=== PATIENT | male | born 1990 | race American Indian/Alaskan Native ===

== ENCOUNTER 2018-06-04 22:45 | Emergency (ER) | payer OTHER ==
[2018-06-04 23:11] VITALS: BP 123/85
--- NOTE | 2018-06-05 00:21 | C.PDOC ---
History Of Present Illness 27 year old male patient presents to the ER with c/o painful lump in gluteal folds. Patient states he has had the lump for x2 days. Patient denies drainage, active bleeding, fever, or chills. Time Seen by Provider: 06/04/18 23:21 Chief Complaint (Nursing): Abnormal Skin Integrity History Per: Patient History/Exam Limitations: no limitations Onset/Duration Of Symptoms: Days (x2) Past Medical History Reviewed: Historical Data, Nursing Documentation, Vital Signs Vital Signs: Last Vital Signs Temp 98 F 06/05/18 00:33 Pulse 82 06/05/18 00:33 Resp 20 06/05/18 00:33 BP 123/85 06/04/18 23:09 Pulse Ox 99 06/05/18 02:07 Family History: States: No Known Family Hx - Social History Hx Alcohol Use: No Hx Substance Use: No - Immunization History Hx Tetanus Toxoid Vaccination: No Hx Influenza Vaccination: No Hx Pneumococcal Vaccination: No Review Of Systems Except As Marked, All Systems Reviewed And Found Negative. Constitutional: Negative for: Fever, Chills Genitourinary: Positive for: Other (lump in rectal fold; no drainage or active bleeding in rectal fold) Physical Exam - Physical Exam Appears: Well, Non-toxic, No Acute Distress Skin: Warm, Dry Head: Atraumatic, Normacephalic Eye(s): bilateral: Normal Inspection Gastrointestinal/Abdominal: Soft, No Tenderness Rectal: Hemorrhoids (+external hemorrhoids), No Mass, No Other (rectal bleed, abscess, or fluctuant mass) Back: No CVA Tenderness Extremity: Normal ROM (x4) Neurological/Psych: Oriented x3, Normal Speech, Normal Motor, Normal Sensation, Normal Reflexes Gait: Steady ED Course And Treatment O2 Sat by Pulse Oximetry: 99 (RA) Pulse Ox Interpretation: Normal Progress Note: Impression: Ext hemorrhoid. Reassess: Patient is resting comfortably. Patient is prescribed medication and patient is instructed symptomatic care at home. Patient is advised to f/u with PMD in 1-2 days. Disposition Counseled Patient/Family Regarding: Diagnosis, Need For Followup, Rx Given - Disposition Referrals: Julieth Garcia MD [Staff Provider] - Disposition: HOME/ ROUTINE Disposition Time: 00:17 Condition: STABLE Additional Instructions: Take medications as directed Do Sitz baths High fiber diet Follow up with PMD Retun to ER if worse Prescriptions: Docusate Sodium [Colace] 100 mg PO BID #20 capsule Hydrocortisone [Anusol-HC] 25 mg RC BID #14 sup Instructions: Hemorrhoids (DC) Forms: [facility] (Congolese) - Clinical Impression Clinical Impression: Hemorrhoids, external - PA / MARBLE POLISHER / Resident Statement MD/ has reviewed & agrees with the documentation as recorded. - Scribe Statement The provider has reviewed the documentation as recorded by the Yessi Bone Do All medical record entries made by the Scribe were at my direction and personally dictated by me. I have reviewed the chart and agree that the record accurately reflects my personal performance of the history, physical exam, medical decision making, and the department course for this patient. I have also personally directed, reviewed, and agree with the discharge instructions and disposition.
[2018-06-05 00:34] VITALS: PULSE 82; RESP 20; TEMP 98
[2018-06-05 02:04] VITALS: O2SAT 99
== END 2018-06-05 00:33 | disposition home or self-care (01) ==
LOC: C.ER 22:45
DX: K64.4 Residual hemorrhoidal skin tags (principal)

== ENCOUNTER 2018-06-07 21:28 | Emergency (ER) | payer OTHER ==
[2018-06-07 21:36] VITALS: BP 116/71; PULSE 87; RESP 20; TEMP 98.5; O2SAT 96
--- NOTE | 2018-06-07 22:34 | C.PDOC ---
History Of Present Illness 27 year old male patient presents to the ER with complaints of painful hemorrhoids and bleeding from area tonight. He reports having the hemorrhoids for several days, was seen in ED and given medications. Tonight when applying the ointment he felt pain and then noticed bright red blood from rectum. He still has pain and bleeding. Denies fever, chills, nausea, abdominal pain or weakness. Time Seen by Provider: 06/07/18 21:43 Chief Complaint (Nursing): Abnormal Skin Integrity History Per: Patient History/Exam Limitations: no limitations Current Symptoms Are (Timing): Still Present Additional History Per: Patient Past Medical History Reviewed: Historical Data, Nursing Documentation, Vital Signs Vital Signs: Last Vital Signs Temp 98.5 F 06/07/18 21:33 Pulse 87 06/07/18 21:33 Resp 20 06/07/18 21:33 BP 116/71 06/07/18 21:33 Pulse Ox 96 06/08/18 00:04 - Medical History PMH: No Chronic Diseases Surgical History: No Surg Hx Family History: States: No Known Family Hx - Social History Hx Alcohol Use: No Hx Substance Use: No - Immunization History Hx Tetanus Toxoid Vaccination: No Hx Influenza Vaccination: No Hx Pneumococcal Vaccination: No Review Of Systems Except As Marked, All Systems Reviewed And Found Negative. Constitutional: Negative for: Fever, Chills Gastrointestinal: Positive for: Rectal Pain (hemorrhoids), Other (rectal bleeding). Negative for: Nausea, Abdominal Pain Neurological: Negative for: Weakness Physical Exam - Physical Exam Appears: Non-toxic Skin: Warm, Dry Head: Atraumatic, Normacephalic Eye(s): bilateral: Normal Inspection, EOMI Neck: Normal ROM, Supple Chest: Symmetrical Cardiovascular: Rhythm Regular Respiratory: Normal Breath Sounds Gastrointestinal/Abdominal: Normal Exam, Soft, No Tenderness Rectal: Hemorrhoids (external hemorrhoids with thrombus and mild active bleeding ), No Mass, No Other (abscess/fluctuant mass) Neurological/Psych: Oriented x3 ED Course And Treatment O2 Sat by Pulse Oximetry: 96 (RA) Pulse Ox Interpretation: Normal Medical Decision Making Medical Decision Making: Impression: painful hemorrhoid, bleeding Plan: Consult surgery Progress: [facility] surgery telephone operator, Dr Cain who states Dr Garcia is covering [facility] surgical nurse practitioner who will come to ED [id number] residential aide at bedside residential aide performed procedure to drain the area, consent obtained; see consult note [id number] Patient feeling better and is stable for discharge. Patient instructed to do sitz baths, take analgesics and follow up outpatient. Disposition Counseled Patient/Family Regarding: Diagnosis, Need For Followup, Rx Given - Disposition Referrals: Jonathan Greene MD [Medical Doctor] - Julieth Garcia MD [Staff Provider] - Disposition: HOME/ ROUTINE Disposition Time: 23:37 Condition: GOOD Additional Instructions: Do Sitz baths Take pain medication as needed Follow up with Dr Garcia Instructions: Hemorrhoids (DC), How to Do a Sitz Bath Forms: [employer] (Greenlandic) - POA Present On Arrival: None - Clinical Impression Clinical Impression: External hemorrhoid, bleeding - PA / DELI BAKERY CLERK / Resident Statement / has reviewed & agrees with the documentation as recorded. - Scribe Statement The provider has reviewed the documentation as recorded by the Yessi Cueva Provider Attestation: All medical record entries made by the Javieribnicolle were at my direction and personally dictated by me. I have reviewed the chart and agree that the record accurately reflects my personal performance of the history, physical exam, medical decision making, and the department course for this patient. I have also personally directed, reviewed, and agree with the discharge instructions and disposition.
[2018-06-07] MEDS ORDERED: Lidocaine 2% Jelly (Uro-Jet) TOP ONE (22:52)
--- NOTE | 2018-06-08 02:01 | CP.PCM.CON ---
History of Present Illness - History of Present Illness History of Present Illness: Late Entry--Patient seen and evaluated approximately 11PM General Surgery consult note for Dr. Garcia Constulted for: thrombosed hemorrhoid Pt is a 27M who denies any other PMH who presented with pain and bleeding from his rectum. Patient states that 5 days ago he noted a swelling and pain in his rectum and was diagnosed with a non-thrombosed hemorrhoid in the ER at [facility]. He was discharged to home with instructions to follow up with Dr. Garcia in her office for further evaluation. Patient states he treated the hemorrhoid with preparation h and warm soaks. Patient states that his pain has been improved but then today the pain got worse and he noted blood coming from the hemorrhoid that he couldn't stop with pressure. Patient denies fevers, chills, abdominal pain, or any other symptoms, is having regular bowel movements PMH: none PSH: none ALL: NKDA Review of Systems - Review of Systems All systems: reviewed and no additional remarkable complaints except (as per HPI ) Past Patient History - Past Medical History & Family History Past Medical History?: Yes - Past Social History Smoking Status: Current Some Days Smoker - PSYCHIATRIC Hx Substance Use: No - SURGICAL HISTORY Hx Surgeries: No Meds Allergies/Adverse Reactions: Allergies Allergy/AdvReac Type Severity Reaction Status Date / Time No Known Allergies Allergy Verified 06/07/18 21:32 Physical Exam - Constitutional Appears: Well, Non-toxic, No Acute Distress - Head Exam Head Exam: NORMOCEPHALIC - Eye Exam Eye Exam: Normal appearance. absent: Conjunctival injection, Scleral icterus - ENT Exam ENT Exam: Mucous Membranes Moist, Normal Oropharynx - Respiratory Exam Respiratory Exam: NORMAL BREATHING PATTERN. absent: Accessory Muscle Use, Respiratory Distress - Cardiovascular Exam Cardiovascular Exam: REGULAR RHYTHM, RRR - GI/Abdominal Exam GI & Abdominal Exam: Soft. absent: Distended, Tenderness - Rectal Exam Additional comments: purple, protruding, tense hemorrhoid with bright red blood and part of a clot protruding, normal rectal tone - Extremities Exam Extremities exam: Positive for: pedal pulses present. Negative for: calf tenderness, pedal edema - Neurological Exam Neurological exam: Alert, Oriented x3 - Psychiatric Exam Psychiatric exam: Normal Affect, Normal Mood - Skin Skin Exam: Dry, Intact, Normal Color, Warm Results - Vital Signs Recent Vital Signs: Last Vital Signs Temp 98.5 F 08/21/18 21:33 Pulse 87 06/07/18 21:33 Resp 20 06/07/18 21:33 BP 116/71 06/07/18 21:33 Pulse Ox 96 06/08/18 00:10 Assessment & Plan - Assessment and Plan (Free Text) Assessment: 27M with history of external hemorrhoid, thrombosed tonight Plan: bedside incision of thrombosis and evacuation of thrombosis Discharge to home Sitz baths after every bowel movement PRN alternating tylenol and ibuprofen Follow up with Dr. Garcia in her office for further evaluation Return to the ER for any fevers, chills, purulent discharge, or any other concerning symptoms. Discussed with DR. Jose Benitez, PGY2 Addendum Addendum: 06/08/18 02:07 Procedure note: Pre-op Diagnosis: acute thrombosed external hemorrhoid Procedure: incision of hemorrhoid and evacuation of the thrombosis Operative findings: clot evacuated from hemorrhoid Specimens: none Written consent was obtained with nurse as witness. time out was performed to identify patient, location, and procedure. Lidocaine cream was applied to the hemorrhoid. Rectal area was sanitized with betadine. hemorrhoid was incised with an #11 blade and clot was expressed. Adequate hemostasis was obtained via pressure with gauze dressings. Patient tolerated the procedure well with no adverse side effects.
== END 2018-06-07 23:44 | disposition home or self-care (01) ==
LOC: C.ER 21:28
DX: K64.5 Perianal venous thrombosis (principal)

== ENCOUNTER 2018-08-01 21:34 | Emergency (ER) | payer OTHER ==
[2018-08-01 22:09] VITALS: BP 112/68; PULSE 82; RESP 16; TEMP 98.9; O2SAT 98
--- NOTE | 2018-08-01 23:04 | C.PDOC ---
History Of Present Illness 27 year old male presents to the ED c/o right eye pain. Patient reports he noticed a small lump to his right lower eyelid. Patient denies fever, chills, visual changes, eye discharge, decreased vision, dizziness. Time Seen by Provider: 08/01/18 22:29 Chief Complaint (Nursing): Eye Problem History Per: Patient History/Exam Limitations: no limitations Onset/Duration Of Symptoms: Days Current Symptoms Are (Timing): Still Present Injury To Eye?: No Quality: "Pain" Wears Contact Lens?: No Associated Symptoms: Swelling Recent travel outside of the [place]: No Additional History Per: Patient Past Medical History Reviewed: Historical Data, Nursing Documentation, Vital Signs Vital Signs: Last Vital Signs Temp 98.9 F 08/01/18 22:04 Pulse 82 08/01/18 22:04 Resp 16 08/01/18 22:04 BP 112/68 08/01/18 22:04 Pulse Ox 98 08/01/18 22:04 - Medical History PMH: Asthma Surgical History: No Surg Hx Family History: States: Unknown Family Hx - Social History Hx Alcohol Use: No Hx Substance Use: No - Immunization History Hx Tetanus Toxoid Vaccination: No Hx Influenza Vaccination: No Hx Pneumococcal Vaccination: No Review Of Systems Constitutional: Negative for: Fever, Chills Eyes: Positive for: Eyelid Inflammation. Negative for: Pain, Vision Change, Redness Respiratory: Negative for: Cough Skin: Negative for: Rash Neurological: Negative for: Weakness, Numbness Physical Exam - Physical Exam Appears: Non-toxic, No Acute Distress Skin: Normal Color, Warm, Dry Head: Atraumatic, Normacephalic Eye(s): bilateral: PERRL, EOMI, right: Other (small stye right lower eyelid. No discharge, conjuctival injection. Visual acuity 20/20), left: Normal Inspection Ear(s): Bilateral: Normal Oral Mucosa: Moist Throat: Normal, No Erythema, No Exudate Neck: Normal ROM, Supple Neurological/Psych: Oriented x3, Normal Speech, Normal Cognition Gait: Steady ED Course And Treatment O2 Sat by Pulse Oximetry: 98 (ON RA) Pulse Ox Interpretation: Normal Progress Note: Patient was given antibiotic ointment and instructed in proper care Disposition Counseled Patient/Family Regarding: Diagnosis, Need For Followup - Disposition Referrals: Jameel Cazares [Staff Provider] - Disposition: HOME/ ROUTINE Disposition Time: 23:02 Condition: STABLE Additional Instructions: Please follow up with PMD / EYE doctor Apply ointment as directed Apply warm compress to area Return to ER if worse Prescriptions: Tobramycin 0.3% [Tobrex 0.3% Ophth Oint] 1 applic OP BID #1 tube Instructions: Hernando (Divinedeolum) Forms: [facility] (Namibian), Work Excuse - Clinical Impression Clinical Impression: Hernando - PA / WARRANT SERVER / Resident Statement MD/DO has reviewed & agrees with the documentation as recorded. - Scribe Statement The provider has reviewed the documentation as recorded by the Scribe Jose Alfredo Mohan All medical record entries made by the Scribe were at my direction and personally dictated by me. I have reviewed the chart and agree that the record accurately reflects my personal performance of the history, physical exam, medical decision making, and the department course for this patient. I have also personally directed, reviewed, and agree with the discharge instructions and disposition.
== END 2018-08-01 23:11 | disposition home or self-care (01) ==
LOC: C.ER 21:34
DX: H00.012 Hordeolum externum right lower eyelid (principal)

== ENCOUNTER 2018-09-21 18:07 | Emergency (ER) | payer OTHER ==
[2018-09-21 18:16] VITALS: BP 110/71; PULSE 73; TEMP 98.1; O2SAT 96
[2018-09-21] MEDS ORDERED: Naproxen 550 mg Tab PO STA (19:12)
[2018-09-21] MEDS ORDERED: Naproxen 550 mg Tab PO ONE (19:22)
--- NOTE | 2018-09-21 19:24 | C.PDOC ---
History Of Present Illness 27 year old male presents to the ED for evaluation of right knee pain which has worsened over the past week. Patient reports he sustained an injury to the knee several years ago after playing football, but never underwent medical evaluation. Patient states the pain is worse with walking and bending down. Patient denies extremity numbness/weakness or new injuries. Time Seen by Provider: 09/21/18 18:20 Chief Complaint (Nursing): Lower Extremity Problem/Injury History Per: Patient History/Exam Limitations: no limitations Onset/Duration Of Symptoms: Other (one week ) Current Symptoms Are (Timing): Still Present Additional History Per: Patient Past Medical History Reviewed: Historical Data, Nursing Documentation, Vital Signs Vital Signs: Last Vital Signs Temp 98.1 F 09/21/18 18:12 Pulse 73 09/21/18 18:12 Resp 16 09/21/18 18:12 BP 110/71 09/21/18 18:12 Pulse Ox 96 09/21/18 18:12 - Medical History PMH: Asthma Surgical History: No Surg Hx Family History: States: Unknown Family Hx - Social History Hx Alcohol Use: No Hx Substance Use: No - Immunization History Hx Tetanus Toxoid Vaccination: No Hx Influenza Vaccination: No Hx Pneumococcal Vaccination: No Review Of Systems Musculoskeletal: Positive for: Other (right knee pain ) Neurological: Negative for: Weakness, Numbness Physical Exam - Physical Exam Appears: Non-toxic, No Acute Distress Skin: Normal Color, Warm, Dry, No Rash Head: Atraumatic, Normacephalic Oral Mucosa: Moist Neck: Normal ROM Back: No CVA Tenderness, No Vertebral Tenderness Extremity: Normal ROM (right knee ), No Tenderness, Capillary Refill (less than 2 seconds ), No Deformity, Swelling (mild, to anterior aspect of right knee ) Pulses: Left Dorsalis Pedis: Normal, Right Dorsalis Pedis: Normal Neurological/Psych: Oriented x3, Normal Speech, Normal Cognition, Normal Motor, Normal Sensation Gait: Steady ED Course And Treatment O2 Sat by Pulse Oximetry: 96 (on RA) Pulse Ox Interpretation: Normal Medical Decision Making Medical Decision Making: Progress: Right knee XR ordered and reviewed. Naproxen PO given. On re-exam, the patient reports improvement of symptoms. Lungs are CTA, heart is RRR, abdomen is soft, non-tender and tolerating PO well. Ambulatory in the ED with steady. Follow up with the medical doctor within 1-2 days. Return if worsened. Disposition - Disposition Referrals: Harjit Rdz MD [Staff Provider] - Adeel Back MD [Staff Provider] - Disposition: HOME/ ROUTINE Disposition Time: 20:07 Condition: STABLE Additional Instructions: Follow up with the medical doctor within 1-2 days. Return if worsened. Prescriptions: Naproxen [Naprosyn] 500 mg PO BID #20 tab Instructions: Knee Sprain (DC) Forms: [employer] (New Zealander), Work Excuse - Clinical Impression Clinical Impression: Knee pain - PA / MINE BOSS / Resident Statement MD/DO has reviewed & agrees with the documentation as recorded. - Scribe Statement The provider has reviewed the documentation as recorded by the Scribe (Madeline Gipson) All medical record entries made by the Scribe were at my direction and personally dictated by me. I have reviewed the chart and agree that the record accurately reflects my personal performance of the history, physical exam, medical decision making, and the department course for this patient. I have also personally directed, reviewed, and agree with the discharge instructions and disposition.
[2018-09-21 20:34] VITALS: RESP 20
--- NOTE | 2018-09-22 08:15 | RAD ---
Date of service: 09/21/2018 PROCEDURE: Right Knee Radiographs. HISTORY: knee pain and swelling COMPARISON: None. FINDINGS: BONES: No fracture. Tibial plateau spurring medial femoral condylar spurring pointing towards the intercondylar fossa. JOINTS: Mild osteoarthrosis. JOINT EFFUSION: None. OTHER FINDINGS: Two well corticated ossifications lateral view over posterior knee joint-may be to variable size fabella this. Tiny loose bodies not excluded (not appreciated further localized on frontal views). IMPRESSION: No fracture or lytic lesion. 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
== END 2018-09-21 20:33 | disposition home or self-care (01) ==
LOC: C.ER 18:07
DX: M25.561 Pain in right knee (principal)

== ENCOUNTER 2018-09-30 16:19 | Emergency (ER) | payer OTHER ==
[2018-09-30 16:23] VITALS: BMI 22.2
[2018-09-30 16:27] VITALS: PULSE 75; RESP 18; TEMP 98.4
[2018-09-30 17:28] VITALS: BP 122/74; O2SAT 98
--- NOTE | 2018-09-30 21:06 | C.PDOC ---
History Of Present Illness 27 year old male presents to the ED for evaluation of right knee pain which began around one week ago. Patient states he was evaluated in the ED one week ago, but has been unable to follow up with orthopedic care due to insurance issues. Patient denies any new trauma to the area. Chief Complaint (Nursing): Lower Extremity Problem/Injury History Per: Patient History/Exam Limitations: no limitations Onset/Duration Of Symptoms: Days (one week ) Current Symptoms Are (Timing): Still Present Additional History Per: Patient Past Medical History Reviewed: Historical Data, Nursing Documentation, Vital Signs Vital Signs: Last Vital Signs Temp 98.4 F 09/30/18 16:23 Pulse 75 09/30/18 17:27 Resp 18 09/30/18 17:27 BP 122/74 09/30/18 17:27 Pulse Ox 98 09/30/18 17:27 - Medical History PMH: Asthma Surgical History: No Surg Hx Family History: States: Unknown Family Hx - Social History Hx Alcohol Use: No Hx Substance Use: No - Immunization History Hx Tetanus Toxoid Vaccination: No Hx Influenza Vaccination: No Hx Pneumococcal Vaccination: No Review Of Systems Musculoskeletal: Positive for: Other (right knee pain ) Physical Exam - Physical Exam Appears: Non-toxic, No Acute Distress Skin: Normal Color, Warm, Dry Extremity: Tenderness (mild, to lateral aspect of right knee ), Capillary Refill (less than 2 seconds ), Other (knee immobilizer in place on right knee. negative anterior drawer test) Pulses: Left Dorsalis Pedis: Normal, Right Dorsalis Pedis: Normal Neurological/Psych: Oriented x3, Normal Speech, Normal Cognition ED Course And Treatment O2 Sat by Pulse Oximetry: 98 (on RA) Pulse Ox Interpretation: Normal Medical Decision Making Medical Decision Making: Progress: On reassessment, patient is resting comfortably, showing no signs of distress and is stable for discharge. Patient is advised to follow up with clinic within 1-2 days for further evaluation. Disposition - Disposition Referrals: [facility] [Outside] [facility] [Outside] Disposition: HOME/ ROUTINE Disposition Time: 17:20 Condition: GOOD Additional Instructions: MADISON ZHU, thank you for letting us take care of you today. The emergency medical care you received today was directed at your acute symptoms. If you were prescribed any medication, please fill it and take as directed. It may take several days for your symptoms to resolve. Return to the Emergency Department if your symptoms worsen, do not improve, or if you have any other problems. Please contact your doctor or call one of the physicians/clinics you have been referred to that are listed on the Patient Visit Information form that is included in your discharge packet. Bring any paperwork you were given at discharge with you along with any medications you are taking to your follow up visit. Our treatment cannot replace ongoing medical care by a primary care provider outside of the emergency department. Thank you for allowing the [facility] team to be part of your care today. Follow up with the clinic this coming Wednesday for re-evaluation and further management. Instructions: Knee Sprain (DC) Forms: [employer] (Arabic), Work Excuse - Clinical Impression Clinical Impression: Knee sprain - Scribe Statement The provider has reviewed the documentation as recorded by the Scribe (Madeline Gipson) Provider Attestation: All medical record entries made by the Scribe were at my direction and personally dictated by me. I have reviewed the chart and agree that the record accurately reflects my personal performance of the history, physical exam, medical decision making, and the department course for this patient. I have also personally directed, reviewed, and agree with the discharge instructions and disposition.
== END 2018-09-30 17:28 | disposition home or self-care (01) ==
LOC: C.ER 16:19
DX: S83.91XA Sprain of unspecified site of right knee, initial encounter (principal); X58.XXXA Exposure to other specified factors, initial encounter